=== PATIENT | female | born 1965 | race Caucasian/White ===

== ENCOUNTER 2017-02-02 22:03 | Observation (INO) | payer OTHER ==
[~2017-02-02] VITALS: Ht 167.6 cm; Wt 98.7 kg
[~2017-02-02 22:03] MED LIST: ABILIFY2 MG PO; ABILIFY5 MG PO; ADVAIR 100/501 DISK IH; ALPRAZOLAM0.5 MG PO; ARIPIPRAZOLE10 MG PO; ASPIR 8181 M1 PO; ATIVAN1 MG PO; ATROVENT HFA12.9 GM IH; AZITHROMYCIN500 M1 PO; CYCLOBENZAPRINE10 M1 PO; DESYREL100 MG PO; DIAZEPAM10 MG PO; ENDOCET 5-3251 EACH PO; FENOFIBRATE160 M1 PO; FLEXERIL10 MG PO; FLOMAX0.4 MG PO; GLUCOPHAGE500 MG PO; HYDROCHLOROTHIA25 MG PO; HYDROCHLOROTHIAZIDE; KLONOPIN1 MG PO; MELOXICAM15 MG PO; METFORMIN; METFORMIN HCL500 MG PO; MOBIC7.5 MG PO; NAPROSYN500 MG PO; OMEPRAZOLE40 M1 PO; PERCOCET 10-321 EACH PO; PERCOCET 5/31 TABLET PO; PRILOSEC40 MG PO; PRISTIQ100 MG PO; PROAIR HFA8.5 GM IH; PROMETHAZINE HC25 M1 PO; Proventil,Ventolin H IH; RANITIDINE HCL150 MG PO; SEROQUEL; SEROQUEL100 MG PO; SUMATRIPTAN SU100 MG PO; TRAZODONE HCL100 MG PO; TRAZODONE HCL50 MG PO; ULTRAM50 MG PO; ZANTAC150 M1 PO; ZOFRAN4 MG PO; ZYRTEC5 MG PO
[2017-02-02 22:52] LABS: HEMATOCRIT 42.5 % (36.0-46.0); MCH 29.6 PG (29.0-34.0); MCHC 33.4 G/DL (30.0-36.0); MCV 88.7 FL (83-99); MEAN PLAT.VOLUME 8.7 uM^3 (9.5-12.4); PLATELET COUNT 266 K/uL (156-360); RBC DIS.WIDTH-CV 12.5 % (11.8-14.6); RBC DIS.WIDTH-SD 41.1 % (39-53); RED BLOOD COUNT 4.79 M/uL (3.80-5.20); WHITE BLOOD COUNT 10.8 K/uL (4.1-10.2)
[2017-02-02 22:58] LABS: PROTHROMBIN TIME 10.3 (9.2-11.2); PTT 26.3 (25-32)
[2017-02-02 23:08] LABS: CHLORIDE 102 mEq/L (99-109); POTASSIUM 3.3 mEq/L (3.7-5.4); SODIUM 138 mEq/L (136-147)
[2017-02-02 23:10] LABS: GLUCOSE 109 mg/dL (70-99)
[2017-02-02 23:12] LABS: ANION GAP 8 MEQ/L (2-14)
[2017-02-02 23:13] LABS: TROP-I INTERPRETATION NEGATIVE; TROPONIN-I 0.02 ng/mL (0.0-0.30)
[2017-02-02 23:14] LABS: GFR ESTIMATE (CALCULATED) > 59 mL/min/
[2017-02-02 23:15] LABS: UREA NITROGEN (BUN) 14 mg/dL (9-23)
[2017-02-03] MEDS ORDERED: DURAGESIC75 MCG TD (00:10)
[2017-02-03] MEDS ORDERED: BACLOFEN10 MG PO (00:11)
[2017-02-03] MEDS ORDERED: IBUPROFEN600 MG PO (00:11)
[2017-02-03] MEDS ORDERED: PRISTIQ100 MG PO (00:11)
[2017-02-03] MEDS ORDERED: AMITIZA24 MICROGR PO (00:11)
[2017-02-03] MEDS ORDERED: PRAVACHOL10 MG PO (00:11)
[2017-02-03 02:02] VITALS: BP 107/64
[2017-02-03 02:12] VITALS: BP 117/64
[2017-02-03 03:29] LABS: HDL CHOLESTEROL 72 MG/DL (Desirable>=50); LDL CHOLESTEROL 83 mg/dL (Desirable<100); NON-HDL CHOLESTEROL 104 mg/dL (Desirable<160); TOTAL CHOLESTEROL 176 mg/dL (Desirable<200); TRIGLYCERIDES 107 MG/DL (Normal: <150)
[2017-02-03 04:39] VITALS: BP 101/60
[2017-02-03 06:29] LABS: TROP-I INTERPRETATION NEGATIVE; TROPONIN-I < 0.01 ng/mL (0.0-0.30)
[2017-02-03 07:45] VITALS: BP 134/75
[2017-02-03 07:46] LABS: Estimated Average Glucose 108 mg/dL (70-123); HEMOGLOBIN A1c (GLYCOHEMOGLOB) 5.4 % HGB (Below 5.7)
[2017-02-03 11:30] VITALS: BP 110/74
[2017-02-03 12:46] LABS: TROP-I INTERPRETATION NEGATIVE; TROPONIN-I < 0.01 ng/mL (0.0-0.30)
[2017-02-03] MEDS ORDERED: ASPIRIN EC325 MG PO (14:40)
[2017-02-03] MEDS ORDERED: PRAVASTATIN SOD40 MG PO (14:40)
[2017-02-03] MEDS ORDERED: NYSTATIN100000 UN1 PO (16:02)
== END 2017-02-03 16:10 | disposition home or self-care (01) ==
LOC: EME 22:03 → EDOF 02-03 00:43 → 5WEST 02-03 01:46
PROVIDERS: Emergency Medicine; Hospitalist
DX: G45.9 Transient cerebral ischemic attack, unspecified (principal); E87.6 Hypokalemia; R51 Headache; R94.31 Abnormal electrocardiogram [ECG] [EKG]; I10 Essential (primary) hypertension; E11.9 Type 2 diabetes mellitus without complications; E78.5 Hyperlipidemia, unspecified; F41.9 Anxiety disorder, unspecified; F17.200 Nicotine dependence, unspecified, uncomplicated; E28.2 Polycystic ovarian syndrome; E78.00 Pure hypercholesterolemia, unspecified
CPT/HCPCS: 70450; 70551; 71020; 80048; 80061; 83036; 84484; 85027; 85610; 85730; 93005; 93880; 99281; 99285; G0378; J0780; J1200; J1644; J1885; J7030

== ENCOUNTER 2017-03-08 17:39 | Emergency (ER) | payer OTHER ==
[~2017-03-08] VITALS: Ht 167.6 cm; Wt 99.1 kg
[~2017-03-08 17:39] MED LIST changes: +AMITIZA24 MICROGR PO; +ASPIRIN EC325 MG PO; +BACLOFEN10 MG PO; +DURAGESIC75 MCG TD; +IBUPROFEN600 MG PO; +NYSTATIN100000 UN1 PO; +PRAVACHOL10 MG PO; +PRAVASTATIN SOD40 MG PO
[2017-03-08 17:57] VITALS: BP 129/76
== END 2017-03-08 19:00 | disposition left against medical advice (07) ==
LOC: EME 17:39
DX: R09.89 Other specified symptoms and signs involving the circulatory and respiratory systems (principal); Z53.21 Procedure and treatment not carried out due to patient leaving prior to being seen by health care provider
CPT/HCPCS: 99281; 99285

== ENCOUNTER 2017-03-10 10:15 | Emergency (ER) | payer OTHER ==
[~2017-03-10] VITALS: Ht 167.6 cm; Wt 98.5 kg
[2017-03-10 11:17] LABS: HEMATOCRIT 40.1 % (36.0-46.0); MCH 29.5 PG (29.0-34.0); MCHC 33.4 G/DL (30.0-36.0); MCV 88.1 FL (83-99); MEAN PLAT.VOLUME 8.8 uM^3 (9.5-12.4); PLATELET COUNT 262 K/uL (156-360); RBC DIS.WIDTH-CV 12.5 % (11.8-14.6); RBC DIS.WIDTH-SD 40.4 % (39-53); RED BLOOD COUNT 4.55 M/uL (3.80-5.20); WHITE BLOOD COUNT 6.6 K/uL (4.1-10.2)
[2017-03-10 11:27] LABS: CHLORIDE 105 mEq/L (99-109); POTASSIUM 3.6 mEq/L (3.7-5.4); SODIUM 140 mEq/L (136-147)
[2017-03-10 11:29] LABS: GLUCOSE 119 mg/dL (70-99)
[2017-03-10 11:30] LABS: ANION GAP 11 MEQ/L (2-14)
[2017-03-10 11:33] LABS: GFR ESTIMATE (CALCULATED) > 59 mL/min/
[2017-03-10 11:34] LABS: UREA NITROGEN (BUN) 15 mg/dL (9-23)
[2017-03-10 12:57] LABS: D-DIMER ELISA 0.29 mg/L FEU (< 0.57)
[2017-03-10 13:06] LABS: TROP-I INTERPRETATION NEGATIVE; TROPONIN-I < 0.01 ng/mL (0.0-0.30)
[2017-03-10] MEDS ORDERED: PROAIR HFA8.5 GM IH (14:17)
[2017-03-10] MEDS ORDERED: MEDROL DOSEPAK4 MG PO (14:17)
[2017-03-10 14:41] VITALS: BP 112/68
== END 2017-03-10 14:42 | disposition home or self-care (01) ==
LOC: EME 10:15
DX: J45.909 Unspecified asthma, uncomplicated (principal); J20.9 Acute bronchitis, unspecified; E11.9 Type 2 diabetes mellitus without complications; I10 Essential (primary) hypertension; Z87.442 Personal history of urinary calculi; K21.9 Gastro-esophageal reflux disease without esophagitis; Z86.73 Personal history of transient ischemic attack (TIA), and cerebral infarction without residual deficits; Z79.4 Long term (current) use of insulin; Z87.891 Personal history of nicotine dependence
CPT/HCPCS: 71020; 80048; 83880; 84484; 85027; 85379; 93005; 94640; 99281; 99284

== ENCOUNTER 2017-03-13 14:17 | Emergency (ER) | payer OTHER ==
[~2017-03-13] VITALS: Ht 167.6 cm; Wt 98.4 kg
[~2017-03-13 14:17] MED LIST changes: +MEDROL DOSEPAK4 MG PO
[2017-03-13 15:10] LABS: BASOPHIL COUNT 0.1 K/uL (0-0.1); CHLORIDE 101 mEq/L (99-109); EOSINOPHIL COUNT 0.2 K/uL (0-0.3); HEMATOCRIT 41.1 % (36.0-46.0); IMMATURE GRANULOCYTE (%) 0.8 % (0.0-0.7); IMMATURE GRANULOCYTE COUNT 0.1 K/uL; INSTRUMENT ABS NEUTROPHIL CT 4.6 K/uL; LYMPHOCYTE COUNT 3.7 K/uL (1.0-2.8); MCHC 34.1 G/DL (30.0-36.0); MEAN PLAT.VOLUME 8.4 uM^3 (9.5-12.4); MONOCYTE (%) 6.2 % (3-12); MONOCYTE COUNT 0.6 K/uL (0-0.8); NEUTROPHIL (%) 50.1 % (45-76); NEUTROPHIL COUNT 4.6 K/uL (1.8-6.4); PLATELET COUNT 289 K/uL (156-360); POTASSIUM 3.5 mEq/L (3.7-5.4); RBC DIS.WIDTH-CV 12.5 % (11.8-14.6); RBC DIS.WIDTH-SD 40.6 % (39-53); RED BLOOD COUNT 4.67 M/uL (3.80-5.20); SODIUM 137 mEq/L (136-147); WHITE BLOOD COUNT 9.2 K/uL (4.1-10.2)
[2017-03-13 15:12] LABS: GLUCOSE 81 mg/dL (70-99)
[2017-03-13 15:14] LABS: ANION GAP 13 MEQ/L (2-14)
[2017-03-13 15:16] LABS: GFR ESTIMATE (CALCULATED) > 59 mL/min/
[2017-03-13 15:22] LABS: UREA NITROGEN (BUN) 27 mg/dL (9-23)
[2017-03-13 15:23] LABS: TROP-I INTERPRETATION NEGATIVE; TROPONIN-I < 0.01 ng/mL (0.0-0.30)
[2017-03-13 17:03] VITALS: BP 129/83
== END 2017-03-13 17:04 | disposition left against medical advice (07) ==
LOC: EME 14:17
PROVIDERS: Emergency Medicine
DX: R07.9 Chest pain, unspecified (principal); J45.909 Unspecified asthma, uncomplicated; E11.9 Type 2 diabetes mellitus without complications; I10 Essential (primary) hypertension; Z87.442 Personal history of urinary calculi; K21.9 Gastro-esophageal reflux disease without esophagitis; Z87.891 Personal history of nicotine dependence
CPT/HCPCS: 71010; 80048; 84484; 85025; 93005; 99281; 99284

== ENCOUNTER → 2017-10-09 | Emergency (ER) | payer OTHER ==
[~2017-10-09] VITALS: Ht 167.6 cm; Wt 90.2 kg
[~2017-10-09] MED LIST changes: +LEVAQUIN750 MG PO; +MIRALAX255 GM PO
[2017-10-09 10:46] LABS: EOSINOPHIL (%) 1.6 % (0-5); EOSINOPHIL COUNT 0.2 K/uL (0-0.3); HEMATOCRIT 36.9 % (36.0-46.0); IMMATURE GRANULOCYTE (%) 0.7 % (0.0-0.7); IMMATURE GRANULOCYTE COUNT 0.1 K/uL; INSTRUMENT ABS NEUTROPHIL CT 7.2 K/uL; LYMPHOCYTE COUNT 1.3 K/uL (1.0-2.8); MCH 30.6 PG (29.0-34.0); MCV 87.4 FL (83-99); MEAN PLAT.VOLUME 8.8 uM^3 (9.5-12.4); MONOCYTE (%) 8.9 % (3-12); MONOCYTE COUNT 0.9 K/uL (0-0.8); NEUTROPHIL (%) 74.7 % (45-76); NEUTROPHIL COUNT 7.2 K/uL (1.8-6.4); PLATELET COUNT 239 K/uL (156-360); RBC DIS.WIDTH-CV 12.1 % (11.8-14.6); RBC DIS.WIDTH-SD 38.8 % (39-53); RED BLOOD COUNT 4.22 M/uL (3.80-5.20); WHITE BLOOD COUNT 9.6 K/uL (4.1-10.2)
[2017-10-09 10:58] LABS: CHLORIDE 101 mEq/L (99-109); POTASSIUM 3.6 mEq/L (3.7-5.4); SODIUM 133 mEq/L (136-147)
[2017-10-09 11:00] LABS: GLUCOSE 116 mg/dL (70-99)
[2017-10-09 11:01] LABS: ANION GAP 10 MEQ/L (2-14)
[2017-10-09 11:02] LABS: TOTAL BILIRUBIN 0.6 mg/dL (0.0-1.0)
[2017-10-09 11:04] LABS: ALKALINE PHOSPHATASE 63 IU/L (3-129); GFR ESTIMATE (CALCULATED) 16 mL/min/
[2017-10-09 11:05] LABS: UREA NITROGEN (BUN) 26 mg/dL (9-23)
[2017-10-09 11:06] LABS: DIRECT BILIRUBIN 0.3 mg/dL (0.0-0.3)
[2017-10-09 11:07] LABS: LIPASE 8 U/L (1.0-51.0)
[2017-10-09 12:11] LABS: ADD MIUA? YES; BILIRUBIN NEGATIVE; BLOOD MODERATE; COLOR YELLOW ((YELLOW)); GLUCOSE (STRIP) NEGATIVE; KETONES NEGATIVE; LEUKOCYTES TRACE; NITRITE NEGATIVE; PROTEIN (STRIP) 100; SPECIFIC GRAVITY 1.006 (1.000-1.030); UROBILINOGEN 0.2 MG/DL (0.2-1.0)
[2017-10-09 12:38] LABS: RED BLOOD CELLS 15-20 /HPF (0-5)
[2017-10-09 12:39] LABS: BACTERIA 2+ /HPF; CASTS NONE SEEN /LPF; CRYSTALS PRESENT; EPITHELIAL CELLS 2+ /HPF; MUCUS 1+ /LPF; UCUL ADDED? YES
[2017-10-09 12:40] LABS: AMORPHOUS URATES CRYSTALS 1+
[2017-10-09 13:35] VITALS: BP 120/86
== END | disposition home or self-care (01) ==
LOC: EME 09:42
PROVIDERS: Emergency Medicine
DX: N12 Tubulo-interstitial nephritis, not specified as acute or chronic (principal); I10 Essential (primary) hypertension; E11.9 Type 2 diabetes mellitus without complications; J45.909 Unspecified asthma, uncomplicated; K21.9 Gastro-esophageal reflux disease without esophagitis; F32.9 Major depressive disorder, single episode, unspecified; F41.9 Anxiety disorder, unspecified; Z87.442 Personal history of urinary calculi; Z79.84 Long term (current) use of oral hypoglycemic drugs; F17.200 Nicotine dependence, unspecified, uncomplicated; Z88.0 Allergy status to penicillin; Z88.5 Allergy status to narcotic agent
CPT/HCPCS: 74176; 80048; 80076; 81003; 83690; 85025; 87086; 99281; 99285; J1200; J1885; J2765; J7030

== ENCOUNTER 2017-10-17 20:55 | Inpatient (IN) | payer OTHER ==
[~2017-10-17] VITALS: Ht 167.6 cm; Wt 91.6 kg
[~2017-10-17 20:55] MED LIST changes: -ARIPIPRAZOLE10 MG PO
[2017-10-17] MEDS ORDERED: PRAVACHOL10 MG PO (22:24)
[2017-10-17] MEDS ORDERED: ONDANSETRON HCL4 MG PO (22:27)
[2017-10-17] MEDS ORDERED: CLONIDINE HCL0.1 MG PO (22:28)
[2017-10-17] MEDS ORDERED: LOW DOSE ASPIRI81 M1 PO (22:28)
[2017-10-17] MEDS ORDERED: LISINOPRIL10 MG PO (22:28)
[2017-10-17] MEDS ORDERED: DITROPAN5 MG PO (22:28)
[2017-10-17] MEDS ORDERED: PRAZOSIN HCL2 MG PO (22:29)
[2017-10-17] MEDS ORDERED: HORIZANT600 MG PO (22:29)
[2017-10-17] MEDS ORDERED: BUTALB-APAP-CA1 EACH PO (22:29)
[2017-10-17] MEDS ORDERED: METFORMIN HCL500 MG PO (22:31)
[2017-10-17] MEDS ORDERED: BACTRIM,SEPT1 TABLET PO (22:31)
[2017-10-17 22:54] LABS: HEMATOCRIT 34.8 % (36.0-46.0); MCH 30.7 PG (29.0-34.0); MCHC 34.2 G/DL (30.0-36.0); MCV 89.9 FL (83-99); MEAN PLAT.VOLUME 9.1 uM^3 (9.5-12.4); PLATELET COUNT 184 K/uL (156-360); RBC DIS.WIDTH-CV 12.2 % (11.8-14.6); RBC DIS.WIDTH-SD 40.1 % (39-53); RED BLOOD COUNT 3.87 M/uL (3.80-5.20); WHITE BLOOD COUNT 9.1 K/uL (4.1-10.2)
[2017-10-17 23:04] LABS: CHLORIDE 106 mEq/L (99-109); POTASSIUM 4.2 mEq/L (3.7-5.4); SODIUM 141 mEq/L (136-147)
[2017-10-17 23:06] LABS: GLUCOSE 107 mg/dL (70-99)
[2017-10-17 23:08] LABS: ANION GAP 10 MEQ/L (2-14); TOTAL BILIRUBIN 0.4 mg/dL (0.0-1.0)
[2017-10-17 23:10] LABS: ALKALINE PHOSPHATASE 45 IU/L (3-129); GFR ESTIMATE (CALCULATED) 16 mL/min/
[2017-10-17 23:11] LABS: UREA NITROGEN (BUN) 42 mg/dL (9-23)
[2017-10-17 23:13] LABS: ADD MIUA? YES; BILIRUBIN NEGATIVE; BLOOD SMALL; COLOR YELLOW ((YELLOW)); GLUCOSE (STRIP) NEGATIVE; KETONES NEGATIVE; LEUKOCYTES NEGATIVE; NITRITE NEGATIVE; PROTEIN (STRIP) NEGATIVE; SPECIFIC GRAVITY 1.009 (1.000-1.030); UROBILINOGEN 0.2 MG/DL (0.2-1.0)
[2017-10-17 23:16] LABS: TROP-I INTERPRETATION NEGATIVE; TROPONIN-I 0.01 ng/mL (0.0-0.30)
[2017-10-17 23:19] LABS: QUANTITATIVE HCG < 4.0 MIU/ML
[2017-10-17 23:25] LABS: BACTERIA RARE /HPF; EPITHELIAL CELLS RARE /HPF; MUCUS TRACE /LPF; RED BLOOD CELLS 0-5 /HPF (0-5); UCUL ADDED? YES
[2017-10-17 23:28] LABS: AMPHETAMINE NEGATIVE (500 ng/mL); BARBITURATES NEGATIVE (200 ng/mL); BENZODIAZEPINES PRESUMPTIVE POSITIVE (150 ng/mL); COCAINE NEGATIVE (150 ng/mL); INTERNAL CONTROLS VALID? YES; METHADONE NEGATIVE (200 ng/mL); METHAMPHETAMINE NEGATIVE (500 ng/mL); OPIATES (MORPHINE) NEGATIVE (100 ng/mL); OXYCODONE NEGATIVE (100 ng/mL); PHENCYCLIDINE NEGATIVE (25 ng/mL); PROPOXYPHENE NEGATIVE (300 ng/mL); THC CANNABINOIDS NEGATIVE (50 ng/mL); TRICYCLIC ANTIDEPRESSANTS NEGATIVE (300 ng/mL)
[2017-10-17 23:29] LABS: ADD MEDTOX COMMENT Y
[2017-10-17 23:45] LABS: SERUM ETHYL ALCOHOL < 10 mg/dL
[2017-10-17 23:48] LABS: LIPASE 6 U/L (1.0-51.0); SALICYLATE < 5.0 MG/DL (15-30)
[2017-10-18 00:59] LABS: CREATINE KINASE 4993 IU/L (1-294)
[2017-10-18 02:03] LABS: BENZODIAZEPINES, URINE SCREEN POSITIVE (200 ng/mL)
[2017-10-18 05:55] VITALS: BP 107/64
[2017-10-18 06:49] LABS: POINT-OF-CARE METER ID UU14117124
[2017-10-18 07:20] LABS: HEMATOCRIT 31.3 % (36.0-46.0); MCHC 34.2 G/DL (30.0-36.0); MCV 90.7 FL (83-99); MEAN PLAT.VOLUME 9.5 uM^3 (9.5-12.4); PLATELET COUNT 148 K/uL (156-360); RBC DIS.WIDTH-CV 12.2 % (11.8-14.6); RBC DIS.WIDTH-SD 40.4 % (39-53); RED BLOOD COUNT 3.45 M/uL (3.80-5.20); WHITE BLOOD COUNT 7.4 K/uL (4.1-10.2)
[2017-10-18 07:41] LABS: ANION GAP 9 MEQ/L (2-14); CHLORIDE 109 MEQ/L (99-109); GFR ESTIMATE (CALCULATED) 20 mL/min/; GLUCOSE 111 mg/dL (70-99); POTASSIUM 3.8 MEQ/L (3.7-5.4); SAMPLE HEMOLYSIS CHECK 0; SAMPLE ICTERIC CHECK 0; SAMPLE LIPEMIA CHECK 0; SODIUM 141 MEQ/L (136-147); UREA NITROGEN (BUN) 38 mg/dL (9-23)
[2017-10-18 07:49] LABS: URIC ACID 7.7 mg/dL (3.1-9.2)
[2017-10-18 07:55] VITALS: BP 124/76
[2017-10-18 11:23] LABS: POINT-OF-CARE METER ID UU14117124
[2017-10-18 12:09] VITALS: BP 118/68
[2017-10-18 16:30] VITALS: BP 120/68
[2017-10-18 17:06] LABS: POINT-OF-CARE METER ID UU14188577
[2017-10-18 19:34] VITALS: BP 114/62
[2017-10-18 21:25] LABS: POINT-OF-CARE METER ID UU14188577
[2017-10-18 23:24] VITALS: BP 111/64
[2017-10-19 03:36] VITALS: BP 111/60
[2017-10-19 06:59] LABS: POINT-OF-CARE METER ID UU14149397
[2017-10-19 08:23] VITALS: BP 122/60
[2017-10-19 10:40] LABS: ANION GAP 13 MEQ/L (2-14); CHLORIDE 107 MEQ/L (99-109); CREATINE KINASE 944 IU/L (1-294); GFR ESTIMATE (CALCULATED) 25 mL/min/; GLUCOSE 159 mg/dL (70-99); POTASSIUM 3.3 MEQ/L (3.7-5.4); SAMPLE HEMOLYSIS CHECK 0; SAMPLE ICTERIC CHECK 0; SAMPLE LIPEMIA CHECK 0; SODIUM 140 MEQ/L (136-147); UREA NITROGEN (BUN) 29 mg/dL (9-23)
[2017-10-19 11:05] LABS: HBSG INDEX 0.16; HPCA INDEX 0.13
[2017-10-19 11:06] LABS: ANTI-HEPATITIS A VIRUS (IGM) Nonreactive
[2017-10-19 11:07] LABS: ANTI-HEPATITIS B CORE (IGM) Nonreactive; HBC IgM INDEX 0.09
[2017-10-19 11:34] LABS: POINT-OF-CARE METER ID UU14208753
[2017-10-19 11:52] VITALS: BP 133/79
[2017-10-19 16:08] VITALS: BP 132/68
[2017-10-19 16:53] LABS: POINT-OF-CARE METER ID UU14208753
[2017-10-19 19:52] VITALS: BP 131/80
[2017-10-19 21:42] LABS: POINT-OF-CARE METER ID UU14117124
[2017-10-19 23:30] VITALS: BP 141/83
[2017-10-20 04:38] VITALS: BP 143/67
[2017-10-20 06:31] LABS: POINT-OF-CARE METER ID UU14149397
[2017-10-20 06:52] LABS: ANION GAP 10 MEQ/L (2-14); CHLORIDE 108 MEQ/L (99-109); GFR ESTIMATE (CALCULATED) 28 mL/min/; POTASSIUM 3.8 MEQ/L (3.7-5.4); SAMPLE HEMOLYSIS CHECK 0; SAMPLE ICTERIC CHECK 0; SAMPLE LIPEMIA CHECK 0; SODIUM 140 MEQ/L (136-147); UREA NITROGEN (BUN) 24 mg/dL (9-23)
[2017-10-20 06:53] LABS: GLUCOSE 109 mg/dL (70-99)
[2017-10-20 08:23] VITALS: BP 142/77
[2017-10-20 11:44] VITALS: BP 147/76
[2017-10-20 12:17] LABS: POINT-OF-CARE METER ID UU14117124
[2017-10-20 16:31] VITALS: BP 141/68
[2017-10-20 17:04] LABS: POINT-OF-CARE METER ID UU14149397
[2017-10-20 19:56] VITALS: BP 139/73
[2017-10-20 22:13] LABS: POINT-OF-CARE METER ID UU14149397
[2017-10-20 23:45] VITALS: BP 109/65
[2017-10-21 03:59] VITALS: BP 116/70
[2017-10-21 06:28] LABS: POINT-OF-CARE METER ID UU14188577
[2017-10-21 08:07] LABS: ANION GAP 9 MEQ/L (2-14); CHLORIDE 106 MEQ/L (99-109); GFR ESTIMATE (CALCULATED) 28 mL/min/; GLUCOSE 92 mg/dL (70-99); POTASSIUM 3.4 MEQ/L (3.7-5.4); SAMPLE HEMOLYSIS CHECK 0; SAMPLE ICTERIC CHECK 0; SAMPLE LIPEMIA CHECK 0; SODIUM 140 MEQ/L (136-147); UREA NITROGEN (BUN) 25 mg/dL (9-23)
[2017-10-21 08:17] VITALS: BP 123/68
[2017-10-21 08:55] LABS: CREATINE KINASE 249 IU/L (1-294)
[2017-10-21 11:29] VITALS: BP 133/74
[2017-10-21 11:47] LABS: POINT-OF-CARE METER ID UU14149397
[2017-10-21 15:41] VITALS: BP 161/74
[2017-10-21] MEDS ORDERED: TRAZODONE HCL100 MG PO (15:47)
[2017-10-21 17:23] LABS: POINT-OF-CARE METER ID UU14188577
[2017-10-21 21:05] VITALS: BP 130/71
[2017-10-21 22:05] LABS: POINT-OF-CARE METER ID UU14188577
[2017-10-21 23:43] VITALS: BP 130/58
[2017-10-22 04:40] VITALS: BP 128/64
[2017-10-22 06:04] LABS: POINT-OF-CARE METER ID UU14149397
[2017-10-22 06:52] VITALS: BP 145/81
[2017-10-22 07:01] LABS: EOSINOPHIL (%) 2.6 % (0-5); EOSINOPHIL COUNT 0.2 K/uL (0-0.3); HEMATOCRIT 29.1 % (36.0-46.0); IMMATURE GRANULOCYTE (%) 1.3 % (0.0-0.7); IMMATURE GRANULOCYTE COUNT 0.1 K/uL; INSTRUMENT ABS NEUTROPHIL CT 3.6 K/uL; LYMPHOCYTE COUNT 1.7 K/uL (1.0-2.8); MCH 30.6 PG (29.0-34.0); MCHC 34.4 G/DL (30.0-36.0); MEAN PLAT.VOLUME 10.4 uM^3 (9.5-12.4); MONOCYTE (%) 8.2 % (3-12); MONOCYTE COUNT 0.5 K/uL (0-0.8); NEUTROPHIL (%) 59.9 % (45-76); NEUTROPHIL COUNT 3.6 K/uL (1.8-6.4); PLATELET COUNT 154 K/uL (156-360); RBC DIS.WIDTH-CV 12.2 % (11.8-14.6); RBC DIS.WIDTH-SD 39.9 % (39-53); RED BLOOD COUNT 3.27 M/uL (3.80-5.20); WHITE BLOOD COUNT 6.1 K/uL (4.1-10.2)
[2017-10-22 07:24] LABS: ALKALINE PHOSPHATASE 61 IU/L (3-129); ANION GAP 10 MEQ/L (2-14); CHLORIDE 109 MEQ/L (99-109); GFR ESTIMATE (CALCULATED) 36 mL/min/; GLUCOSE 92 mg/dL (70-99); POTASSIUM 3.2 MEQ/L (3.7-5.4); SAMPLE HEMOLYSIS CHECK 0; SAMPLE ICTERIC CHECK 0; SAMPLE LIPEMIA CHECK 0; SODIUM 144 MEQ/L (136-147); TOTAL BILIRUBIN 0.4 MG/DL (0.0-1.0); UREA NITROGEN (BUN) 24 mg/dL (9-23)
[2017-10-22 09:14] LABS: MAGNESIUM 1.6 mg/dl (1.3-2.7)
[2017-10-22] MEDS ORDERED: NICOTINE PATCH1 EAC1 TD (09:33)
[2017-10-22] MEDS ORDERED: AMLODIPINE BESYL5 MG PO (09:34)
[2017-10-22 09:46] LABS: IMM.RETIC FRACTION 14.4 % (3-19); RETICULOCYTE COUNT 1.4 % (0.5-1.8)
[2017-10-22 09:47] LABS: IRON 47 MCG/DL (35-150)
[2017-10-22 10:05] LABS: FERRITIN 63 NG/ML (10-291)
[2017-10-22 10:39] VITALS: BP 139/98
[2017-10-22 11:36] LABS: POINT-OF-CARE METER ID UU14149397
== END 2017-10-22 13:47 | disposition home or self-care (01) | DRG 683 ==
LOC: EXP 20:55 → EME 20:55 → EDOF 10-18 04:25 → 3EAST 10-18 04:25 → ENRESERV 10-18 04:26 → 3EAST 10-18 05:33 → ENPENDDIS 10-22 → 3EAST 10-22 13:47
PROVIDERS: Hospitalist; Physician Assistant; Physician Assistant Medical
DX: N17.0 Acute kidney failure with tubular necrosis (principal); M62.82 Rhabdomyolysis; K22.2 Esophageal obstruction; E04.1 Nontoxic single thyroid nodule; J44.1 Chronic obstructive pulmonary disease with (acute) exacerbation; N12 Tubulo-interstitial nephritis, not specified as acute or chronic; E11.22 Type 2 diabetes mellitus with diabetic chronic kidney disease; I12.9 Hypertensive chronic kidney disease with stage 1 through stage 4 chronic kidney disease, or unspecified chronic kidney disease; E78.5 Hyperlipidemia, unspecified; G89.29 Other chronic pain; Z68.32 Body mass index [BMI] 32.0-32.9, adult; R13.19 Other dysphagia; R22.2 Localized swelling, mass and lump, trunk; E87.6 Hypokalemia; D64.9 Anemia, unspecified; K21.9 Gastro-esophageal reflux disease without esophagitis; F17.210 Nicotine dependence, cigarettes, uncomplicated; F31.9 Bipolar disorder, unspecified; E86.0 Dehydration; F40.240 Claustrophobia; N32.81 Overactive bladder; Z86.73 Personal history of transient ischemic attack (TIA), and cerebral infarction without residual deficits; R74.0 Nonspecific elevation of levels of transaminase and lactic acid dehydrogenase [LDH]; Z82.3 Family history of stroke; Z82.49 Family history of ischemic heart disease and other diseases of the circulatory system; Z87.442 Personal history of urinary calculi
CPT/HCPCS: 70450; 70551; 71550; 74176; 76536; 80048; 80053; 80074; 81003; 82436; 82550; 82607; 82728; 82746; 82948; 83540; 83605; 83690; 83735; 83930; 83935; 84133; 84300; 84443; 84466; 84484; 84550; 84702; 84999; 85025; 85027; 85045; 87040; 87086; 93005; 94010; 94640; 94640 76; 99202; 99281; 99285; G0480; J0696; J1644; J1815; J1956; J2060; J2405; J2765; J3010; J3475; J7030; J7040; S0028

== ENCOUNTER 2017-10-30 20:54 | Emergency (ER) | payer OTHER ==
[~2017-10-30] VITALS: Ht 167.6 cm; Wt 92.4 kg
[~2017-10-30 20:54] MED LIST changes: +AMLODIPINE BESYL5 MG PO; +BACTRIM,SEPT1 TABLET PO; +BUTALB-APAP-CA1 EACH PO; +CLONIDINE HCL0.1 MG PO; +DITROPAN5 MG PO; +HORIZANT600 MG PO; +LISINOPRIL10 MG PO; +LOW DOSE ASPIRI81 M1 PO; +NICOTINE PATCH1 EAC1 TD; +ONDANSETRON HCL4 MG PO; +PRAZOSIN HCL2 MG PO
[2017-10-30 21:50] LABS: EOSINOPHIL (%) 3.8 % (0-5); EOSINOPHIL COUNT 0.3 K/uL (0-0.3); HEMATOCRIT 32.9 % (36.0-46.0); IMMATURE GRANULOCYTE (%) 0.7 % (0.0-0.7); IMMATURE GRANULOCYTE COUNT 0.1 K/uL; INSTRUMENT ABS NEUTROPHIL CT 4.2 K/uL; LYMPHOCYTE COUNT 2.3 K/uL (1.0-2.8); MCH 30.3 PG (29.0-34.0); MCHC 34.3 G/DL (30.0-36.0); MCV 88.2 FL (83-99); MONOCYTE (%) 4.9 % (3-12); MONOCYTE COUNT 0.4 K/uL (0-0.8); NEUTROPHIL (%) 58.1 % (45-76); NEUTROPHIL COUNT 4.2 K/uL (1.8-6.4); RBC DIS.WIDTH-CV 12.8 % (11.8-14.6); RBC DIS.WIDTH-SD 41.3 % (39-53); RED BLOOD COUNT 3.73 M/uL (3.80-5.20); WHITE BLOOD COUNT 7.1 K/uL (4.1-10.2)
[2017-10-30 21:54] LABS: MEAN PLAT.VOLUME 8.3 uM^3 (9.5-12.4); PLATELET COUNT 232 K/uL (156-360)
[2017-10-30 21:59] LABS: CHLORIDE 109 mEq/L (99-109); POTASSIUM 2.9 mEq/L (3.7-5.4); SODIUM 141 mEq/L (136-147)
[2017-10-30 22:01] LABS: GLUCOSE 125 mg/dL (70-99)
[2017-10-30 22:02] LABS: ANION GAP 8 MEQ/L (2-14)
[2017-10-30 22:03] LABS: TOTAL BILIRUBIN 0.4 mg/dL (0.0-1.0)
[2017-10-30 22:04] LABS: ALKALINE PHOSPHATASE 59 IU/L (3-129)
[2017-10-30 22:05] LABS: GFR ESTIMATE (CALCULATED) > 59 mL/min/
[2017-10-30 22:06] LABS: UREA NITROGEN (BUN) 13 mg/dL (9-23)
[2017-10-30 22:07] LABS: CREATINE KINASE 38 IU/L (1-294); TOTAL CK 38 IU/L (1-294)
[2017-10-30 22:13] LABS: CK-MB 2.1 ng/mL (0.0-4.9)
[2017-10-30 23:29] LABS: ADD MIUA? YES; BILIRUBIN NEGATIVE; BLOOD NEGATIVE; COLOR YELLOW ((YELLOW)); GLUCOSE (STRIP) NEGATIVE; KETONES NEGATIVE; LEUKOCYTES TRACE; NITRITE NEGATIVE; PROTEIN (STRIP) NEGATIVE; SPECIFIC GRAVITY 1.013 (1.000-1.030); UROBILINOGEN 0.2 MG/DL (0.2-1.0)
[2017-10-30 23:35] LABS: BACTERIA 3+ /HPF; EPITHELIAL CELLS 1+ /HPF; MUCUS TRACE /LPF; RED BLOOD CELLS 0-5 /HPF (0-5); UCUL ADDED? YES
[2017-10-30] MEDS ORDERED: K-DUR20 MEQ PO (23:49)
[2017-10-31 00:20] VITALS: BP 161/104
== END 2017-10-31 00:21 | disposition home or self-care (01) ==
LOC: EME 20:54
PROVIDERS: Emergency Medicine
DX: E87.6 Hypokalemia (principal); R53.1 Weakness; R51 Headache; R11.0 Nausea; I10 Essential (primary) hypertension; J45.909 Unspecified asthma, uncomplicated; Z79.82 Long term (current) use of aspirin; Z87.442 Personal history of urinary calculi; F17.200 Nicotine dependence, unspecified, uncomplicated
CPT/HCPCS: 80053; 81003; 82550; 82553; 83605; 85025; 87086; 93005; 99281; 99285; J7030

== ENCOUNTER 2017-12-28 14:47 | Emergency (ER) | payer OTHER ==
[~2017-12-28] VITALS: Ht 167.6 cm; Wt 91.3 kg
[~2017-12-28 14:47] MED LIST changes: +K-DUR20 MEQ PO
[2017-12-28 15:55] LABS: HEMATOCRIT 36.3 % (36.0-46.0); HEMOGLOBIN 12.5 G/DL (11.9-15.5); MCH 30.3 PG (29.0-34.0); MCHC 34.4 G/DL (30.0-36.0); MCV 88.1 FL (83-99); PLATELET COUNT 215 K/uL (156-360); RBC DIS.WIDTH-CV 12.7 % (11.8-14.6); RBC DIS.WIDTH-SD 40.8 % (39-53); RED BLOOD COUNT 4.12 M/uL (3.80-5.20); WHITE BLOOD COUNT 5.8 K/uL (4.1-10.2)
[2017-12-28 16:02] LABS: APPEARANCE CLOUDY ((CLEAR)); BILIRUBIN NEGATIVE; BLOOD NEGATIVE; COLOR YELLOW ((YELLOW)); GLUCOSE (STRIP) NEGATIVE; KETONES NEGATIVE; LEUKOCYTES NEGATIVE; NITRITE NEGATIVE; PROTEIN (STRIP) 30; SPECIFIC GRAVITY 1.029 (1.000-1.030); UROBILINOGEN 0.2 MG/DL (0.2-1.0)
[2017-12-28 16:03] LABS: ALBUMIN 3.6 g/dL (3.2-4.8); CHLORIDE 107 mEq/L (99-109); POTASSIUM 3.6 mEq/L (3.7-5.4)
[2017-12-28 16:04] LABS: SODIUM 141 mEq/L (136-147)
[2017-12-28 16:06] LABS: GLUCOSE 105 mg/dL (70-99); TOTAL PROTEIN 5.8 g/dL (6.4-8.3)
[2017-12-28 16:08] LABS: TOTAL BILIRUBIN 0.3 mg/dL (0.0-1.0)
[2017-12-28 16:09] LABS: ALKALINE PHOSPHATASE 63 IU/L (3-129); CREATININE 0.7 mg/dL (0.6-1.3); GFR ESTIMATE (CALCULATED) > 59 mL/min/
[2017-12-28 16:10] LABS: UREA NITROGEN (BUN) 15 mg/dL (9-23)
[2017-12-28 16:11] LABS: AST (GOT) 24 IU/L (2-34)
[2017-12-28 16:12] LABS: ALT (GPT) 27 IU/L (3-49)
[2017-12-28 16:19] LABS: QUANTITATIVE HCG < 4.0 MIU/ML
[2017-12-28 16:28] LABS: CREATINE KINASE 26 IU/L (1-294)
[2017-12-28 16:33] LABS: BACTERIA 2+ /HPF; EPITHELIAL CELLS 2+ /HPF; MUCUS 3+ /LPF; RED BLOOD CELLS NONE SEEN /HPF (0-5); UCUL ADDED? YES; WHITE BLOOD CELLS RARE /HPF (0-5)
[2017-12-28] MEDS ORDERED: BACTRIM,SEPT1 TABLET PO (17:01)
[2017-12-28 17:22] VITALS: BP 140/87
== END 2017-12-28 17:22 | disposition home or self-care (01) ==
LOC: EME 14:47
PROVIDERS: Physician Assistant
DX: N39.0 Urinary tract infection, site not specified (principal); M79.1 Myalgia; E11.9 Type 2 diabetes mellitus without complications; I10 Essential (primary) hypertension; J45.909 Unspecified asthma, uncomplicated; Z87.442 Personal history of urinary calculi; F17.200 Nicotine dependence, unspecified, uncomplicated; F41.9 Anxiety disorder, unspecified; F32.9 Major depressive disorder, single episode, unspecified; K21.9 Gastro-esophageal reflux disease without esophagitis; Z79.82 Long term (current) use of aspirin; Z88.5 Allergy status to narcotic agent; Z88.0 Allergy status to penicillin
CPT/HCPCS: 80053; 81003; 82550; 84702; 85027; 87086; 87502; 99281; 99284